=== PATIENT | male | born 1995 | race Caucasian/White ===

== ENCOUNTER → 2019-08-14 | Outpatient (CLI) | payer OTHER ==
--- NOTE | 2019-08-18 08:37 | SLE ---
[facility] [place] [address] POLYSOMNOGRAPHY STUDY Name: LAVON AREVALO Room #: [facility].#: [id number] Admission: 08/14/19 Attend Phys: Bebeto Baker MD Discharge: Date of : 89 Report #: [id number] THIS REPORT FOR: //name// CC: Bebeto Thayer MD DATE OF SERVICE: 08/14/2019 The patient is a 24-year-old who weighs 260 pounds with a BMI of 31.6. The patient's [place] score was 8. The patient underwent split night study performed at [facility]. During the night study, the patient spent 357 minutes in bed and slept for 316 minutes with a sleep efficiency of 88%. Sleep latency was 2.9 minutes with a REM latency of 149 minutes. Sleep architecture showed normal stage 1 sleep, increased stage 2 sleep, normal slow wave and normal REM sleep. During the initial diagnostic portion of the study, the patient slept for 126 minutes. During that time, there were 3 obstructive apneas, no mixed apneas, 1 central apnea and 31 hypopneas. The patient's apnea hypopnea index was 16.6 per hour. REM sleep was not seen during the diagnostic portion. Supine AHI was 20.8 per hour. EKG monitoring revealed an average heart rate of 83 beats per minute. No sustained arrhythmias observed. PLMs were seen at an index of 15 per hour and 3 per hour caused EEG arousals. Nocturnal oximetry study revealed an average oxygen saturation of 93% with the lowest of 81%. 6 minutes were spent in oxygen saturation of less than 89%. The patient met the criteria for CPAP initiation. It was started at 8 cm water and titrated up to 15 cm water. At the final pressure, the patient slept for 83.9 minutes including 26.5 minutes of lateral REM sleep. The patient's AHI was reduced to 0 per hour and oxygen saturation remained above 94%. IMPRESSION: 1. Moderate sleep apnea-hypopnea syndrome at an AHI of 16.6 per hour. Absence of REM sleep during the diagnostic portion can underestimate the severity of sleep apnea. 2. Nocturnal hypoxia secondary to obstructive sleep apnea, but resolved with CPAP. 3. Mild periodic limb movements. RECOMMENDATIONS: [facility] [address] [place] [address] POLYSOMNOGRAPHY STUDY Name: LAVON AREVALO [place] Room #: [facility].#: [id number] Admission: 08/14/19 Attend Phys: Bebeto Baker MD Discharge: Date of : 89 Report #: [id number] 1. CPAP at 15 cm water completely eliminated the patient's sleep apnea and should be used on a nightly basis. 2. Follow up in 4-6 weeks to assess compliance with CPAP and to document clinical improvement. 3. Weight loss is strongly advised. 4. Avoid ADJUSTMENT EXAMINER depressants. 5. Cautioned regarding driving until symptoms of sleep apnea resolve with the use of CPAP. 6. The patient should also be further evaluated for symptoms of restless legs during the day. <ELECTRONICALLY SIGNED> By: Bebeto Baker MD 08/18/19 [id number] Bebeto Baker MD /nt
== END ==
LOC: SLEEPLAB 12:20
DX: G47.30 Sleep apnea, unspecified (principal); G47.33 Obstructive sleep apnea (adult) (pediatric); R09.02 Hypoxemia